=== PATIENT | female | born 1970 | race Caucasian/White ===

== ENCOUNTER 2016-11-19 09:04 | Day surgery (SDC) | payer BC ==
[~2016-11-19] VITALS: Ht 160 cm; Wt 62.7 kg
[~2016-11-19 09:04] MED LIST: ADDERALL20 MG PO; ALPRAZOLAM; AMOXICILLIN 8751 TAB PO; CELEXA 20MG20 MG/TAB PO; DIFLUCAN150 MG PO; LEXAPRO 10MG10 MG PO; LORTAB 5/500 501 TAB PO; XANAX0.5 MG PO; ZESTRIL 5MG5 MG PO
[2016-11-19 09:32] VITALS: BP 108/81; PULSE 82; TEMP 98.9
[2016-11-19] MEDS ORDERED: PRINIVIL5 MG PO (09:35)
[2016-11-19] MEDS ORDERED: ADDERALL XR30 MG PO (09:36)
[2016-11-19 11:10] VITALS: BP 119/85; PULSE 67; TEMP 98.1
[2016-11-19 11:25] VITALS: BP 126/94; PULSE 73
[2016-11-19 12:38] VITALS: BP 104/78; PULSE 89
== END 2016-11-19 11:52 | disposition home or self-care (01) ==
LOC: SDCO 09:04
DX: K44.9 Diaphragmatic hernia without obstruction or gangrene (principal); K29.30 Chronic superficial gastritis without bleeding; R63.4 Abnormal weight loss; I10 Essential (primary) hypertension; K21.9 Gastro-esophageal reflux disease without esophagitis; F41.9 Anxiety disorder, unspecified; F32.9 Major depressive disorder, single episode, unspecified
CPT/HCPCS: OP; J2704; J7030

== ENCOUNTER → 2016-11-21 | Outpatient (CLI) | payer BC ==
[~2016-11-21] MED LIST changes: +ADDERALL XR30 MG PO; +PRINIVIL5 MG PO
== END ==
LOC: COL.RAD
DX: R11.2 Nausea with vomiting, unspecified (principal)
CPT/HCPCS: A9541

== ENCOUNTER → 2017-11-10 | Outpatient (CLI) | payer BC | LOC: MC.RAD 11:40 | DX: Z12.31 Encounter for screening mammogram for malignant neoplasm of breast (principal) ==

== ENCOUNTER → 2019-01-28 | Outpatient (CLI) | payer BC | LOC: MC.RAD 14:33 | DX: Z12.31 Encounter for screening mammogram for malignant neoplasm of breast (principal) ==

== ENCOUNTER 2019-10-30 19:16 | Emergency (ER) | payer BC ==
[~2019-10-30] VITALS: Ht 162.6 cm; Wt 63.6 kg
[2019-10-30 19:27] VITALS: BP 127/86; TEMP 97.8
[2019-10-30] MEDS ORDERED: PERCOCET 325 MG1 TA2 PO (19:47)
[2019-10-30 20:33] VITALS: PULSE 86
== END 2019-10-30 20:33 | disposition home or self-care (01) ==
LOC: COL.ER 19:16
DX: T23.001A Burn of unspecified degree of right hand, unspecified site, initial encounter (principal); T75.00XA Unspecified effects of lightning, initial encounter; X08.8XXA Exposure to other specified smoke, fire and flames, initial encounter; Y92.009 Unspecified place in unspecified non-institutional (private) residence as the place of occurrence of the external cause
CPT/HCPCS: J3010

== ENCOUNTER 2020-01-31 14:49 | Emergency (ER) | payer BC ==
[~2020-01-31] VITALS: Ht 160 cm; Wt 65.9 kg
[~2020-01-31 14:49] MED LIST changes: +PERCOCET 325 MG1 TA2 PO
[2020-01-31 14:52] VITALS: BP 124/84; TEMP 98.7
[2020-01-31 15:48] LABS: STREP SCREEN NEGATIVE
[2020-01-31] MEDS ORDERED: PREDNISONE20 MG PO (16:19)
[2020-01-31 16:47] VITALS: PULSE 95
== END 2020-01-31 16:48 | disposition home or self-care (01) ==
LOC: COL.ER 14:49
PROVIDERS: Nurse Practitioner Primary Care
DX: J06.9 Acute upper respiratory infection, unspecified (principal); Z20.828 Contact with and (suspected) exposure to other viral communicable diseases; I10 Essential (primary) hypertension; Z90.710 Acquired absence of both cervix and uterus
CPT/HCPCS: J1885

== ENCOUNTER → 2022-05-28 | Outpatient (CLI) | payer OTHER ==
[~2022-05-28] MED LIST changes: +PREDNISONE20 MG PO
== END ==
LOC: COL.RAD 10:54
DX: D18.03 Hemangioma of intra-abdominal structures (principal); K44.9 Diaphragmatic hernia without obstruction or gangrene; R14.0 Abdominal distension (gaseous); R11.0 Nausea; R10.13 Epigastric pain

== ENCOUNTER → 2023-06-04 | Outpatient (CLI) | payer OTHER ==
[~2023-06-04] MED LIST changes: +CIPRO 500MG TA500 MG PO; +FLAGYL500 MG PO; +NS IV SCH; +SINCALIDE IV SCH
== END ==
LOC: COL.RAD 09:23
DX: K82.8 Other specified diseases of gallbladder (principal)
CPT/HCPCS: A9537-JZ; J2805

== ENCOUNTER 2023-06-25 12:42 | Day surgery (SDC) | payer OTHER ==
[~2023-06-25] VITALS: Ht 160 cm; Wt 60.8 kg
[2023-06-25] VITALS (9 sets, daily range): BP systolic 120–163; BP diastolic 74–87; PULSE 69–98; TEMP 98.2
[~2023-06-25 12:42] MED LIST changes: +LR 1,000 ML IV SCH; -NS IV SCH; -SINCALIDE IV SCH
[2023-06-25] MEDS ORDERED: XANAX 0.5MG0.5 MG PO (13:28)
[2023-06-25] MEDS ORDERED: ASPIRIN E.C. 8181 MG PO (13:29)
[2023-06-25] MEDS ORDERED: MULTI VITAMINS1 TAB PO (13:30)
[2023-06-25] MEDS ORDERED: Indocyanine Green 12.5 MG in Water For Injection,Sterile 2.5 ML IV SCH (13:30)
[2023-06-25] MEDS ORDERED: MASON NATURAL2000 IU PO (13:31)
[2023-06-25] MEDS ORDERED: VITAMIN B12 781 TAB PO (13:31)
[2023-06-25] MEDS ORDERED: MAGNESIUM200 MG PO (13:32)
--- NOTE | 2023-06-25 14:22 | NUR ---
PATIENT ADMITTED TO ROOM 1 AMBULATORY AND ORIENTED TO ROOM. VOICES UNDERSTANDING OF SURGERY AND ANESTHESIA AND CONSENTS SIGNED. IVF INFUSING AND READIED FOR SURGERY. FRIEND DOUG IN THE ROOM.
[2023-06-25] MEDS ORDERED: dexAMETHasone 10 MG/ML VIAL ONE (14:34)
[2023-06-25] MEDS ORDERED: Ondansetron 4 MG/2 ML VIAL ONE (14:34)
[2023-06-25] MEDS ORDERED: NS 10 ML IV ONE (14:34)
[2023-06-25] MEDS ORDERED: Lidocaine PF 2% (20 MG/ML) 5 ML VIAL ONE (14:34)
[2023-06-25] MEDS ORDERED: Rocuronium 50 MG/5 ML Multi-Dose VIAL ONE (14:35)
[2023-06-25] MEDS ORDERED: fentaNYL 50 MCG/ML 2 ML VIAL ONE ×2 (14:35→16:52)
--- NOTE | 2023-06-25 15:03 | NUR ---
PATIENT WAS INFORMED THAT SURGERY IS DELAYED AND WILL BE KEPT INFORMED.
[2023-06-25] MEDS ORDERED: NORCO 325 MG-51 TAB PO (16:08)
--- NOTE | 2023-06-25 16:13 | NUR ---
PATIENT HAS BEEN RESTING ON CART. DR. LYONS IN THE ROOM AND ALL QUESTIONS ANSWERED.
[2023-06-25] MEDS ORDERED: Ondansetron 4 MG/2 ML VIAL IV PRN ×3 (16:15→20:00)
[2023-06-25] MEDS ORDERED: Ibuprofen 600 MG TAB PO PRN (16:15)
[2023-06-25] MEDS ORDERED: Acetaminophen 325 MG TAB PO PRN (16:15)
[2023-06-25] MEDS ORDERED: hydrALAZINE 20 MG/ML 1 ML VIAL IV PRN (16:30)
[2023-06-25] MEDS ORDERED: HYDROmorphone 1 MG/1 ML SYRINGE [PACU/SDC ONLY] IV PRN (16:30)
[2023-06-25] MEDS ORDERED: droPERidol 2.5 MG/ML 2 ML VIAL IV PRN (16:30)
[2023-06-25] MEDS ORDERED: fentaNYL 50 MCG/ML 1 ML SYRINGE/VIAL [PACU/SDC ONLY] IV PRN (16:30)
[2023-06-25] MEDS ORDERED: Morphine 2 MG/1 ML VIAL [PACU/SDC ONLY] IV PRN (16:30)
[2023-06-25] MEDS ORDERED: Esmolol 10 MG/ML 10 ML VIAL IV ONE (16:40)
[2023-06-25] MEDS ORDERED: Ketorolac 30 MG/ML VIAL ONE (16:42)
--- NOTE | 2023-06-25 19:45 | NUR ---
Patient arrived to the floor at 1850 from PACU, assessed at this time, reports she's nauseated, called Dr. Fitzgerald and made him aware regarding this and her IV zofran is not due yet until 2229, last dose given was at OR at 1630, received an order to revise the iv zofran from every 6hrs to 4 hrs, and it can be given at this time, also received an order to discontinue the [place] and change it to ultram 50mg every 4 hrs PRN, lap sites CDI, offered crackers, denies further needs, call light and personal items within reach, will continue to monitor.
[2023-06-25] MEDS ORDERED: traMADol 50 MG TAB PO PRN (20:00)
[2023-06-26 00:08] VITALS: BP 131/80; PULSE 78
[2023-06-26 03:55] VITALS: BP 138/82; PULSE 71; TEMP 97.7
--- NOTE | 2023-06-26 07:10 | NUR ---
Pt doing okay during shift change. Pt is on the phone ordering breakfast. She reports nausea has subsided and pain is tolerable. No needs at this time, call light within reach
[2023-06-26 08:02] VITALS: BP 115/75; PULSE 72; TEMP 98.4
--- NOTE | 2023-06-26 10:24 | NUR ---
Pt doing well, tolerated diet with no complaints of N/V. Dr Fitzgerald discharged patient. Pts spouse at bedside. Reviewed discharge instructions with pt to include follow up appointment and prescription. INT removed from left hand. Informed pt that she can get dressed and to notify nursing when she is ready to go so that we can escort her out
== END 2023-06-26 10:42 | disposition home or self-care (01) ==
LOC: SDCO 12:42 → SURG 16:25 → SDCO 06-26 10:42
DX: K81.1 Chronic cholecystitis (principal); K82.8 Other specified diseases of gallbladder; K21.9 Gastro-esophageal reflux disease without esophagitis; I10 Essential (primary) hypertension
CPT/HCPCS: OP; J0690; J1100; J1170; J1805; J1885; J2405; J2704; J3010; J7120